=== PATIENT | female | born 1965 | race Caucasian/White ===

== ENCOUNTER 2018-05-25 06:34 | Outpatient (CLI) | payer OTHER ==
[~2018-05-25] VITALS: Ht 172.7 cm; Wt 72.6 kg
[2018-05-25] MEDS ORDERED: METO-370 PO (12:18)
[2018-05-25] MEDS ORDERED: ELDE1CAP PO (12:18)
[2018-05-25] MEDS ORDERED: LORA0.5T PO (12:18)
== END 2018-05-25 12:25 | disposition home or self-care (01) ==
LOC: PREOP 06:34
PROVIDERS: ATTEND Surgery
DX: Z01.818 Encounter for other preprocedural examination (principal)

== ENCOUNTER 2018-06-01 09:13 | Day surgery (SDC) | payer OTHER ==
[~2018-06-01] VITALS: Ht 172.7 cm; Wt 72.6 kg
[~2018-06-01 09:13] MED LIST: ELDE1CAP PO; LORA0.5T PO; METO-370 PO
[2018-06-01] MEDS ORDERED: NS IV 500 ML 500 ML IV PRN (09:31)
[2018-06-01] MEDS ORDERED: NS IV 500 ML 500 ML ONE (09:33)
--- NOTE | 2018-06-01 09:40 | History & Physicial ---
History of Present Illness History of Present Illness Reason for visit/HPI for surveillance colonoscopy. Previous history of colorectal polyp Date of Admission 06/01/18 Date Seen by a Provider: Jun 01, 2018 Time Seen by a Provider: 09:38 I consulted on this patient on 06/01/18 09:38 Attending Physician Gabriele Simmons MD Admitting Physician No,Local Physician Consult Allergies and Home Medications Allergies Coded Allergies: No Known Drug Allergies (Unverified , 05/25/18) Home Medications Elderberry Fruit and Flower 1 Each Capsule, 1 EACH PO DAILY, (Reported) Lorazepam 0.5 Mg Tablet, 0.5 MG PO PRN, (Reported) Metoprolol Succinate 50 Mg Tab.er.24h, 50 MG PO HS, (Reported) Patient Home Medication List Home Medication List Reviewed: Yes Past Piichgx-Uloyux-Uyzgdh Hx Patient Social History Marrital Status: Employed/Student: employed Type Used: Cigarettes 2nd Hand Smoke Exposure: No Recent Foreign Travel: No Contact w/other who traveled: No Recent Hopitalizations: No Seasonal Allergies Seasonal Allergies: Yes Surgeries Yes Gallbladder Respiratory No Cardiovascular Yes (TACHYCARDIA) Hypertension Neurological No Reproductive System Sexually Transmitted Disease: No HIV/AIDS: No Genitourinary No Gastrointestinal Yes Gastroesophageal Reflux, Chronic Constipation, Polyps Musculoskeletal Yes (NECK PAIN) Arthritis, Chronic Back Pain Endocrine History of Endocrine Disorders: No HEENT History of HEENT Disorders: Yes (DENTURES) Loss of Vision: Denies Hearing Impairment: Denies Cancer No Psychosocial History of Psychiatric Problem: Yes Behavioral Health Disorders: Anxiety Integumentary History of Skin or Integumenta: No Blood Transfusions History of Blood Disorders: No Adverse Reaction to a Blood Tr: No (N/A) Review of Systems Constitutional: no symptoms reported Respiratory: no symptoms reported Cardiovascular: no symptoms reported Gastrointestinal: no symptoms reported Genitourinary: no symptoms reported Musculoskeletal: no symptoms reported Skin: no symptoms reported Psychiatric/Neurological: No Symptoms Reported Physical Exam Vital Signs Capillary Refill : Height, Weight, BMI Height: 5'8.00" Weight: 160lbs. 0.0oz. [id number]; 24.3 BMI Method: General Appearance: No Apparent Distress Neck: Normal Inspection Respiratory: Lungs Clear Cardiovascular: Regular Rate, Rhythm Gastrointestinal: Non Tender, Soft Rectal: Deferred Extremity: Normal Inspection Neurologic/Psychiatric: Alert, Oriented x3 Skin: Warm/Dry Assessment/Plan Assessment and Plan lady with a previous history of adenomatous polyp with dysplasia. For surveillance colonoscopy Admission Diagnosis Admission Status: Other (Outpt Proc) GABRIELE SIMMONS MD Jun 01, 2018 09:39
--- NOTE | 2018-06-01 09:40 | Conscious Sedation/ASA ---
Conscious Sedation Pre-Proced Time 09:40 ASA Score 2 For ASA 3 and 4: Consider anesthesia and medical clearance. Also, for patients with a history of failed moderate sedation consider anesthesia. Airway Lungs Heart ASA score ASA 1: a normal healthy patient ASA 2: a patient with a mild systemic disease (mid diabetes, controlled hypertension, obesity ASA 3: a patient with a severe systemic disease that limits activity (angina , COPD, prior Myocardial infarction) ASA 4: a patient with an incapacitating disease that is a constant threat to life (CHF, renal failure) ASA 5: a moribund patient not expected to survive 24 hrs. (ruptured aneurysm) ASA 6: a declared brain- patient whose organs are being harvested. For emergent operations, add the letter E after the classification Mallampati Classification Grade 1 Sedation Plan Discussed options with patient/fam The patient is an appropriate candidate to undergo the planned procedure, sedation, and anesthesia. The patient immediately re-assessed prior to indication. GABRIELE SIMMONS MD Jun 01, 2018 09:40
[2018-06-01] MEDS ORDERED: fentaNYL INJECTION 100 MCG/2 ML AMP IVP ONE (09:45)
[2018-06-01] MEDS ORDERED: MIDAZOLAM 2 MG/2 ML (VERSED) VIAL IVP ONE (09:45)
[2018-06-01 09:59] VITALS: BP 112/76
[2018-06-01] MEDS ORDERED: fentaNYL INJECTION 100 MCG/2 ML AMP ONE ×2 (10:53→11:19)
[2018-06-01] MEDS ORDERED: MIDAZOLAM 2 MG/2 ML (VERSED) VIAL ONE ×3 (10:54)
--- NOTE | 2018-06-01 11:39 | Endo Procedure Record ---
Endo Procedure Report Date of Procedure Last Colonoscopy: Yes (2015) Jun 01, 2018 Surgeon (s) GABRIELE SIMMONS MD Post Procedure/Op Diagnosis normal colonoscopy Procedure Performed colonoscopy to cecum Description of Procedure Anesthesia Type: Conscious Sedation Specimen(s) collected/removed None Description of the Procedure Indication for the procedure: In November 2015, this lady was found to have a malignant rectal polyp, that was snared. the pedicle was negative and therefore polypectomy was felt to be adequate therapy. She underwent a negative flexible sigmoidoscopy in February 2016 and a surveillance exam 1 year thereafter was recommended. Somehow, she did not comply with this recommendation and went on until now. About 2 weeks ago, she noticed a speck of blood in her stools. She came in for colonoscopy and informed consent was obtained after an adequate discussion. Description of the procedure: She was placed in left lateral decubitus position and her vital signs were monitored. Conscious sedation was achieved using Versed and fentanyl. Digital rectal examination was unremarkable. The colonoscope was then introduced into the rectum and advanced all the way up to the cecum. It was then withdrawn slowly and the mucosa examined in a systematic fashion. There was no recurrence of her polyp. She tolerated the procedure well and was taken back to the nursing area in a stable condition. Impression: Previous malignant rectal polyp, negativ pedicle. Currently no recurrence. Recommend repeating in 2 years. Copy Copies To 1: lexi oliveira XAVIER M MD Jun 01, 2018 11:39
--- NOTE | 2018-06-01 11:40 | Discharge Inst-Simple/Standard ---
Discharge Inst-Standard Discharge Medications New, Converted or Re-Newed RX: Other Patient Instructions/Follow Up Plan of Care/Instructions/FU: repeat colonoscopy in 2 years. Follow up with her primary physician in [place] Activity as Tolerated: Yes Discharge Diet: No Restrictions GABRIELE SIMMONS MD Jun 01, 2018 11:40
[2018-06-01 11:55] VITALS: BP 103/58
[2018-06-01 12:25] VITALS: BP 106/62
[2018-06-01 12:30] VITALS: BP 106/62
== END 2018-06-01 12:30 | disposition home or self-care (01) ==
LOC: ENDO 09:13
PROVIDERS: ATTEND Surgery
DX: Z12.11 Encounter for screening for malignant neoplasm of colon (principal); Z87.891 Personal history of nicotine dependence; I10 Essential (primary) hypertension; F41.9 Anxiety disorder, unspecified; K21.9 Gastro-esophageal reflux disease without esophagitis; K59.09 Other constipation; Z86.010 Personal history of colon polyps
CPT/HCPCS: 84703